=== PATIENT | male | born 1990 | race Caucasian/White ===

== ENCOUNTER 2019-02-13 19:03 | Emergency (ER) | payer BC ==
[2019-02-13] MEDS: DEXAMETHASONE 10 MG/ML 1 ML INJ IM (21:18)
[2019-02-13] MEDS: morphine 4 MG/ML VIAL IM (21:19)
== END 2019-02-13 21:42 | disposition home or self-care (01) ==
LOC: FTE 19:03
DX: M54.42 Lumbago with sciatica, left side (principal); J45.909 Unspecified asthma, uncomplicated
CPT/HCPCS: 96372; 99284-25

== ENCOUNTER 2019-02-15 19:30 | Emergency (ER) | payer BC | END 2019-02-15 21:35 | disposition home or self-care (01) | LOC: FTE 19:30 | DX: M54.5 Low back pain (principal); J45.909 Unspecified asthma, uncomplicated | CPT/HCPCS: 99283; Z7502 ==

== ENCOUNTER 2019-02-24 14:15 | Emergency (ER) | payer BC ==
[2019-02-24] MEDS: HYDROCODONE/APAP (10/325) TAB PO (17:07)
[2019-02-24] MEDS: DEXAMETHASONE 10 MG/ML 1 ML INJ IM (17:08)
== END 2019-02-24 17:29 | disposition home or self-care (01) ==
LOC: FTE 17:29
DX: M54.42 Lumbago with sciatica, left side (principal); J45.909 Unspecified asthma, uncomplicated
CPT/HCPCS: 96372; 99284-25; J1100